=== PATIENT | female | born 1945 | race Caucasian/White ===

== ENCOUNTER 2022-09-24 09:50 | Inpatient (IN) | payer MEDICARE, OTHER ==
[~2022-09-24] VITALS: Ht 170.2 cm; Wt 80.0 kg
[2022-09-24] MEDS ORDERED: cloNIDine HCL 0.1 MG TAB PO ONE (10:30)
[2022-09-24 11:12] LABS: Alanine Aminotransferase 24 U/L (13-56); Albumin 3.7 g/dL (3.4-5.0); Anion Gap 10 (5-15); Aspartate Aminotransferase 30 U/L (15-37); BUN/Creatinine Ratio 17.3; Blood Urea Nitrogen 14 mg/dL (7-18); Calcium 9.3 mg/dL (8.5-10.1); Carbon Dioxide 24 mmol/L (21-32); Chloride 108 mmol/L (98-107); GFR African American 89 mL/min; GFR Non-African American 73 mL/min; Glucose 104 mg/dL (74-106); Potassium 4.1 mmol/L (3.5-5.1); Sodium 142 mmol/L (136-145)
[2022-09-24 11:15] LABS: Alkaline Phosphatase 71 U/L (45-117); Bilirubin, Total 0.7 mg/dL (0.2-1.0); Total Protein 7.2 g/dL (6.4-8.2)
[2022-09-24 11:22] LABS: Basophils # (auto) 0 10 ^3/uL (0-0.2); Basophils % (auto) 0.6 % (0.0-2.0); Eosinophils # (auto) 0.1 10 ^3/uL (0-0.8); Hematocrit 45.2 % (36.0-46.0); Hemoglobin 14.9 g/dL (12.2-16.2); Lymphocytes # (auto) 1.4 10 ^3/uL (0.4-5.4); Lymphocytes % (auto) 19.2 % (10.0-50.0); Mean Corpuscular Hemoglobin 28.9 pg (28.0-32.0); Mean Corpuscular Hgb Conc. 32.9 g/dL (32.0-36.0); Mean Corpuscular Volume 87.7 fL (80.0-100.0); Monocytes # (auto) 0.7 10 ^3/uL (0-1.3); Monocytes % (auto) 9.5 % (0.0-12.0); Neutrophils # (auto) 5.2 10 ^3/uL (1.6-8.6); Neutrophils % (auto) 69.7 % (37.0-80.0); Nucleated Red Blood Cells % 0.4 %; Red Blood Cells 5.15 10^6/uL (4.0-5.20); Red Cell Distribution Width 13.3 % (11.8-14.3); White Blood Cell 7.5 10^3/uL (4.4-10.8)
[2022-09-24] MEDS ORDERED: hydrALAZINE HCL 20 MG/ML VL IV PRN (12:30)
[2022-09-24] MEDS ORDERED: DOCUSATE SOD 100 MG CAP PO PRN (12:30)
[2022-09-24] MEDS ORDERED: MORPHINE SULFATE INJ 2 MG/ml SYRG IV PRN (12:30)
[2022-09-24] MEDS ORDERED: HYDROcodone-ACET 5/325MG TAB PO PRN (12:30)
[2022-09-24] MEDS ORDERED: ACETAMINOPHEN 325 MG TAB PO PRN (12:30)
[2022-09-24] MEDS ORDERED: ONDANSETRON HCL 4 MG/2 ML VIAL IV PRN (12:30)
[2022-09-24] MEDS ORDERED: MAALOX PLUS or MAALOX 30 ML PO PRN (12:30)
[2022-09-24] MEDS ORDERED: LORazepam 0.5 MG TAB PO PRN (12:30)
[2022-09-24] MEDS: cloNIDine HCL 0.1 MG TAB PO SCH ×2 (14:00→17:17)
[2022-09-25] VITALS (7 sets, daily range): BP systolic 121–158; BP diastolic 46–77
[2022-09-25] MEDS ORDERED: ONDANSETRON HCL 4 MG/2 ML VIAL IV PRN (01:30)
[2022-09-25] MEDS ORDERED: cloNIDine HCL 0.1 MG TAB ONE (01:38)
[2022-09-25] MEDS: cloNIDine HCL 0.1 MG TAB PO SCH ×4 (02:33→21:59)
[2022-09-25] MEDS ORDERED: ACETAMINOPHEN 325 MG TAB PO PRN (05:30)
[2022-09-25] MEDS ORDERED: LORazepam 0.5 MG TAB PO PRN (05:30)
[2022-09-25] MEDS ORDERED: MORPHINE SULFATE INJ 2 MG/ml SYRG IV PRN (05:30)
[2022-09-25] MEDS ORDERED: HYDROcodone-ACET 5/325MG TAB PO PRN (05:30)
[2022-09-25] MEDS ORDERED: MAALOX PLUS or MAALOX 30 ML PO PRN (05:30)
[2022-09-25] MEDS ORDERED: DOCUSATE SOD 100 MG CAP PO PRN (05:30)
[2022-09-25] MEDS: ONDANSETRON HCL 4 MG/2 ML VIAL IV PRN ×2 (06:50→13:08)
[2022-09-25] MEDS ORDERED: CHOLECALCIFEROL (VITD3) 2,000 UNIT CAP/TAB PO ONE (11:30)
[2022-09-25] MEDS ORDERED: ZINC SULFATE 220mg CAP or TAB PO ONE (11:30)
[2022-09-25] MEDS: ASCORBIC ACID 500 MG TAB PO SCH (21:59)
[2022-09-26 05:00] VITALS: BP 143/60
[2022-09-26] MEDS: cloNIDine HCL 0.1 MG TAB PO SCH ×3 (06:00→21:51)
[2022-09-26 08:00] VITALS: BP 134/56
[2022-09-26 08:10] VITALS: BP 134/56
[2022-09-26] MEDS: ASCORBIC ACID 500 MG TAB PO SCH ×2 (10:00→21:50)
[2022-09-26] MEDS: CHOLECALCIFEROL (VITD3) 2,000 UNIT CAP/TAB PO SCH (10:00)
[2022-09-26] MEDS: ZINC SULFATE 220mg CAP or TAB PO SCH (10:00)
[2022-09-26 11:50] LABS: Urine Bacteria NONE SEEN /hpf (None Seen); Urine Blood Negative /uL (Negative); Urine Hyaline Cast FEW /lpf (0 - 2); Urine Mucus FEW (None Seen); Urine Specific Gravity 1.028 (1.001-1.035); Urine WBC 2 /hpf (0 - 5)
[2022-09-26 12:00] VITALS: BP 130/49
[2022-09-26 12:03] LABS: Alcohol, Urine < 3.0 mg/dL (0-10); Amphetamine Screen, Urine NEGATIVE (NEGATIVE); Barbiturate Scree,Urine NEGATIVE (NEGATIVE); Benzodiazephine Screen, Urine NEGATIVE (NEGATIVE); Cannabinoid Screen, Urine NEGATIVE (NEGATIVE); Cocaine Screen, Urine NEGATIVE (NEGATIVE); Opiate Scree,Urine NEGATIVE (NEGATIVE); Phencyclidine Screen, Urine NEGATIVE (NEGATIVE)
[2022-09-26 16:00] VITALS: BP 122/45
[2022-09-26 22:00] VITALS: BP 143/53
[2022-09-27 05:00] VITALS: BP 148/73
[2022-09-27] MEDS: ONDANSETRON HCL 4 MG/2 ML VIAL IV PRN ×2 (05:23→09:55)
[2022-09-27] MEDS: cloNIDine HCL 0.1 MG TAB PO SCH ×3 (05:31→22:00)
[2022-09-27 08:45] VITALS: BP 169/70
[2022-09-27] MEDS: CHOLECALCIFEROL (VITD3) 2,000 UNIT CAP/TAB PO SCH (09:54)
[2022-09-27] MEDS: ASCORBIC ACID 500 MG TAB PO SCH ×2 (09:54→22:00)
[2022-09-27] MEDS: ZINC SULFATE 220mg CAP or TAB PO SCH (09:54)
[2022-09-27] MEDS: hydrALAZINE HCL 20 MG/ML VL IV PRN ×2 (09:55→22:02)
[2022-09-27 13:10] VITALS: BP 150/60
[2022-09-27 17:11] VITALS: BP 123/63
[2022-09-27 22:00] VITALS: BP 159/76
[2022-09-28 05:00] VITALS: BP 153/83
[2022-09-28] MEDS: cloNIDine HCL 0.1 MG TAB PO SCH (06:00)
[2022-09-28] MEDS: hydrALAZINE HCL 20 MG/ML VL IV PRN (06:13)
[2022-09-28 09:00] VITALS: BP 162/64
[2022-09-28] MEDS: ZINC SULFATE 220mg CAP or TAB PO SCH (10:00)
[2022-09-28] MEDS: CHOLECALCIFEROL (VITD3) 2,000 UNIT CAP/TAB PO SCH (10:00)
[2022-09-28] MEDS: ASCORBIC ACID 500 MG TAB PO SCH ×2 (10:00→22:00)
[2022-09-28] MEDS ORDERED: METOPROLOL TARTRATE 50 MG TAB PO ONE (10:15)
[2022-09-28] MEDS: ONDANSETRON HCL 4 MG/2 ML VIAL IV PRN (10:26)
[2022-09-28] MEDS: LOSARTAN POTASSIUM 50 MG TAB PO SCH ×2 (12:27→22:17)
[2022-09-28 13:00] VITALS: BP 125/65
[2022-09-28 17:00] VITALS: BP 148/71
[2022-09-28 22:00] VITALS: BP 165/72
[2022-09-28] MEDS ORDERED: METOPROLOL TARTRATE 50 MG TAB PO SCH (22:00)
[2022-09-29 05:00] VITALS: BP 178/75
[2022-09-29] MEDS: hydrALAZINE HCL 20 MG/ML VL IV PRN (05:18)
[2022-09-29 09:00] VITALS: BP 124/65
[2022-09-29] MEDS: ZINC SULFATE 220mg CAP or TAB PO SCH (10:00)
[2022-09-29] MEDS: ASCORBIC ACID 500 MG TAB PO SCH ×2 (10:00→21:46)
[2022-09-29] MEDS: CHOLECALCIFEROL (VITD3) 2,000 UNIT CAP/TAB PO SCH (10:00)
[2022-09-29] MEDS: LOSARTAN POTASSIUM 50 MG TAB PO SCH ×2 (11:28→21:46)
[2022-09-29] MEDS: amLODIPine BESYLATE 5 MG TAB PO SCH (11:28)
[2022-09-29 13:00] VITALS: BP 140/61
[2022-09-29 17:00] VITALS: BP 148/60
[2022-09-29 22:00] VITALS: BP 157/63
[2022-09-29] MEDS ORDERED: LORazepam 2MG/ML-1ML VIAL IV PRN (22:30)
[2022-09-30 05:00] VITALS: BP 151/68
[2022-09-30] MEDS: hydrALAZINE HCL 20 MG/ML VL IV PRN (05:33)
[2022-09-30 09:00] VITALS: BP 144/58
[2022-09-30] MEDS: amLODIPine BESYLATE 5 MG TAB PO SCH (10:10)
[2022-09-30] MEDS: ASCORBIC ACID 500 MG TAB PO SCH ×2 (10:10→22:00)
[2022-09-30] MEDS: CHOLECALCIFEROL (VITD3) 2,000 UNIT CAP/TAB PO SCH (10:10)
[2022-09-30] MEDS: ZINC SULFATE 220mg CAP or TAB PO SCH (10:11)
[2022-09-30] MEDS: LOSARTAN POTASSIUM 50 MG TAB PO SCH ×2 (10:11→22:40)
[2022-09-30 12:32] VITALS: BP 127/54
[2022-09-30 17:00] VITALS: BP 129/73
[2022-09-30 22:00] VITALS: BP 124/64
[2022-09-30] MEDS ORDERED: ATORVASTATIN 20 MG TAB PO SCH (22:00)
[2022-09-30] MEDS: CLOPIDOGREL BISULFATE 75 MG TAB PO SCH (22:00)
[2022-09-30 22:23] LABS: Cholesterol 139 mg/dL (< 200)
[2022-09-30 22:26] LABS: HDL Cholesterol 54 mg/dL (40-59); LDL Cholesterol 84 mg/dL (< 100); Triglycerides 77 mg/dL (< 150)
[2022-10-01 05:00] VITALS: BP 139/58
[2022-10-01 09:13] VITALS: BP_SYST 101; BP_SYST 132; BP_DIAS 50; BP_DIAS 66
[2022-10-01] MEDS: CHOLECALCIFEROL (VITD3) 2,000 UNIT CAP/TAB PO SCH (10:00)
[2022-10-01] MEDS: ASCORBIC ACID 500 MG TAB PO SCH (10:00)
[2022-10-01] MEDS: CLOPIDOGREL BISULFATE 75 MG TAB PO SCH (10:00)
[2022-10-01] MEDS ORDERED: ASPirin 81 mg TAB PO SCH (10:00)
[2022-10-01] MEDS: ZINC SULFATE 220mg CAP or TAB PO SCH (10:00)
[2022-10-01] MEDS: amLODIPine BESYLATE 5 MG TAB PO SCH (10:22)
[2022-10-01] MEDS: LOSARTAN POTASSIUM 50 MG TAB PO SCH (10:23)
[2022-10-01] MEDS ORDERED: AMLO-496 PO (10:45)
[2022-10-01] MEDS ORDERED: LOSA-39 PO (10:45)
[2022-10-01] MEDS ORDERED: ATO40T PO (10:45)
[2022-10-01] MEDS ORDERED: ZINC220C10 PO (10:45)
[2022-10-01] MEDS ORDERED: ASCO500C49 PO (10:45)
[2022-10-01] MEDS ORDERED: CHOL20007 PO (10:45)
[2022-10-01] MEDS ORDERED: ASPI-498 PO (10:45)
[2022-10-01 13:24] VITALS: BP 143/51
[2022-10-01 13:36] VITALS: BP 143/51
== END 2022-10-01 15:35 | disposition home or self-care (01) | DRG 304 ==
LOC: EDBD 09:50 → ER 09:59 → TELE 12:19 → UNDODISIN 17:17 → TELE-EAST 23:20
PROVIDERS: ADMIT Hospitalist; ATTEND Family Medicine
DX: I16.0 Hypertensive urgency (principal); U07.1 COVID-19; K80.10 Calculus of gallbladder with chronic cholecystitis without obstruction; R00.1 Bradycardia, unspecified; E66.9 Obesity, unspecified; I25.10 Atherosclerotic heart disease of native coronary artery without angina pectoris; I10 Essential (primary) hypertension; K57.30 Diverticulosis of large intestine without perforation or abscess without bleeding; H81.10 Benign paroxysmal vertigo, unspecified ear; I25.2 Old myocardial infarction; Z68.27 Body mass index [BMI] 27.0-27.9, adult
CPT/HCPCS: 36415; 70450; 70551; 71045; 74176; 78226; 80053; 80061; 80307; 81001; 83690; 84443; 84484; 85025; 85379; 87426; 93005; 93306; 93886; 95819; 97163; 99291; G0378; J2405